=== PATIENT | male | born 1995 | race Caucasian/White ===

== ENCOUNTER 2019-08-15 08:56 | Emergency (ER) | payer MEDICAID ==
[~2019-08-15] VITALS: Ht 193 cm; Wt 163.0 kg
[2019-08-15 11:10] LABS: BASOPHILS % 0.9 % (0.0-2.0); HEMATOCRIT. 48.1 % (42.0-52.0); LYMPHOCYTES % 31.2 % (20.0-50.0); MEAN CORPUSCULAR HEMOGLOBIN 28.5 pg (28.0-32.0); MEAN CORPUSCULAR VOLUME 85.5 fL (80.0-94.0); MEAN PLATELET VOLUME 8.7 fl (7.4-10.4); MONOCYTES % 8.3 % (2.0-8.0); NEUTROPHILS % 58.6 % (40.0-76.0); PLATELET 258 x1000/uL (130-400); RED BLOOD CELL COUNT 5.63 mill/uL (4.7-6.1); RED CELL DISTRIBUTION WIDTH 13.2 % (11.6-14.6)
[2019-08-15 11:18] LABS: CHLORIDE 109 mEq/L (98-107)
[2019-08-15 11:21] LABS: ETHANOL BLOOD < 10 mg/dL
[2019-08-15 14:36] LABS: *AMPHETAMINES SCREEN URINE NEGATIVE (NEGATIVE); *BARBITURATES SCREEN URINE NEGATIVE (NEGATIVE); *BENZODIAZEPINES SCREEN URINE NEGATIVE (NEGATIVE); *COCAINE SCREEN URINE NEGATIVE (NEGATIVE); METHADONE URINE SCREEN NEGATIVE (NEGATIVE)
[2019-08-15 14:37] LABS: CANNABINOID URINE SCREEN PRESUMTIVE POSITIVE (NEGATIVE); OPIATES URINE SCREEN NEGATIVE (NEGATIVE); PHENCYCLIDINE URINE SCREEN NEGATIVE (NEGATIVE)
[2019-08-15] MEDS ORDERED: IBUPROFEN 600MG TABLET PO ONE (16:00)
[2019-08-15] MEDS ORDERED: ACETAMINOPHEN 500MG TABLET PO ONE (16:00)
[2019-08-15 16:29] VITALS: BP 112/60
== END 2019-08-15 16:13 | disposition home or self-care (01) ==
LOC: ER 08:56
DX: R45.851 Suicidal ideations (principal)
CPT/HCPCS: 36415; 80053; 80305; 80320; 85025; 99284; G0480

== ENCOUNTER 2019-11-02 17:45 | Inpatient (IN) | payer MEDICAID, OTHER ==
[~2019-11-02] VITALS: Ht 193 cm; Wt 166.5 kg
[2019-11-02 20:06] LABS: BASOPHILS % 0.8 % (0.0-2.0); EOSINOPHILS % 0.7 % (0.0-5.0); HEMATOCRIT. 48.1 % (42.0-52.0); LYMPHOCYTES % 33.4 % (20.0-50.0); MEAN CORPUSCULAR HEMOGLOBIN 28.7 pg (28.0-32.0); MEAN PLATELET VOLUME 8.6 fl (7.4-10.4); NEUTROPHILS % 57.1 % (40.0-76.0); PLATELET 257 x1000/uL (130-400); RED BLOOD CELL COUNT 5.59 mill/uL (4.7-6.1); RED CELL DISTRIBUTION WIDTH 13.3 % (11.6-14.6)
[2019-11-02 20:11] LABS: CHLORIDE 106 mEq/L (98-107); INR 0.9; PROTHROMBIN TIME 10.2 sec (9.6-11.0)
[2019-11-02 20:15] LABS: ETHANOL BLOOD < 10 mg/dL
[2019-11-02 20:19] LABS: CREATINE KINASE 319 IU/L (39-308)
[2019-11-02 20:40] LABS: *BARBITURATES SCREEN URINE NEGATIVE (NEGATIVE)
[2019-11-02 20:42] LABS: *AMPHETAMINES SCREEN URINE NEGATIVE (NEGATIVE); *BENZODIAZEPINES SCREEN URINE NEGATIVE (NEGATIVE); *COCAINE SCREEN URINE NEGATIVE (NEGATIVE); CANNABINOID URINE SCREEN PRESUMTIVE POSITIVE (NEGATIVE); METHADONE URINE SCREEN NEGATIVE (NEGATIVE); OPIATES URINE SCREEN PRESUMTIVE POSITIVE (NEGATIVE); PHENCYCLIDINE URINE SCREEN NEGATIVE (NEGATIVE)
[2019-11-02] MEDS ORDERED: ONDANSETRON HCL 4MG/2ML INJ IV ONE (22:45)
[2019-11-03] VITALS (7 sets, daily range): BP systolic 128–166; BP diastolic 68–98
[2019-11-03] MEDS ORDERED: CLONIDINE 0.1MG TABLET PO PRN (02:00)
[2019-11-03] MEDS ORDERED: HYDRALAZINE 20MG/ML VIAL IV PRN (02:00)
[2019-11-03] MEDS ORDERED: ONDANSETRON HCL 4MG/2ML INJ IV PRN (02:00)
[2019-11-03] MEDS ORDERED: SODIUM CHLORIDE 0.45% 1,000 ML IV SCH (02:00)
[2019-11-03] MEDS: ACETAMINOPHEN 325MG TABLET PO PRN ×3 (02:13→14:11)
[2019-11-03 07:52] LABS: BASOPHILS % 0.4 % (0.0-2.0); EOSINOPHILS % 0.5 % (0.0-5.0); HEMATOCRIT. 46.5 % (42.0-52.0); HEMOGLOBIN. 15.9 g/dL (14.0-18.0); LYMPHOCYTES % 32.3 % (20.0-50.0); MEAN CORPUSCULAR VOLUME 84.7 fL (80.0-94.0); NEUTROPHILS % 54.8 % (40.0-76.0); PLATELET 256 x1000/uL (130-400); RED BLOOD CELL COUNT 5.49 mill/uL (4.7-6.1); RED CELL DISTRIBUTION WIDTH 13.9 % (11.6-14.6)
[2019-11-03 08:21] LABS: CHLORIDE 106 mEq/L (98-107)
[2019-11-03] MEDS ORDERED: ENOXAPARIN 40MG/0.4ML SYR SUBCUT SCH (09:00)
== END 2019-11-03 16:45 | disposition home or self-care (01) | DRG 812 ==
LOC: ER 17:45 → 5WST 23:19 → EDBEDREQTM 23:23 → EDBEDREQ 23:23 → ENRESERV 23:57
PROVIDERS: ADMIT Internal Medicine; ATTEND Internal Medicine
DX: T43.291A Poisoning by other antidepressants, accidental (unintentional), initial encounter (principal); E66.01 Morbid (severe) obesity due to excess calories; F32.9 Major depressive disorder, single episode, unspecified; Y92.89 Other specified places as the place of occurrence of the external cause; Z68.41 Body mass index [BMI] 40.0-44.9, adult
CPT/HCPCS: 36415; 80048; 80053; 80305; 80307; 80320; 80329; 82550; 85025; 93005; 99285; J0360; J1650; G0480

== ENCOUNTER 2022-05-15 09:08 | Emergency (ER) | payer MEDICAID ==
[~2022-05-15] VITALS: Ht 182.9 cm; Wt 163.0 kg
[2022-05-15 09:29] VITALS: BP 148/88
[2022-05-15] MEDS ORDERED: CEFTRIAXONE SODIUM 1 G/VIAL IM ONE (11:30)
[2022-05-15] MEDS ORDERED: DOXYCYCLINE HYCLATE 100MG CAPSULE PO ONE (11:30)
[2022-05-15] MEDS ORDERED: DOXY100T2 MT (11:53)
== END 2022-05-15 12:23 | disposition home or self-care (01) ==
LOC: ER 09:24
DX: A64 Unspecified sexually transmitted disease (principal)
CPT/HCPCS: 96372; 99283; J0696